=== PATIENT | male | born 1980 | race Two or more races ===

== ENCOUNTER → 2022-11-25 | Outpatient (CLI) | payer OTHER ==
[2022-11-26 04:06] LABS: RUBEOLA (MEASLES) IGG <13.5 AU/mL (Immune >16.4)
[2022-11-27 07:07] LABS: QUANTIFERON, TB GOLD PLUS Negative (Negative)
== END | disposition home or self-care (01) ==
LOC: LABMN 16:10
PROVIDERS: ATTEND Family Medicine
DX: R33.9 Retention of urine, unspecified (principal); R76.9 Abnormal immunological finding in serum, unspecified; R76.11 Nonspecific reaction to tuberculin skin test without active tuberculosis; B19.10 Unspecified viral hepatitis B without hepatic coma; Z20.820 Contact with and (suspected) exposure to varicella
CPT/HCPCS: 86480; 86592; 86706; 86735; 86762; 86765; 86787; 87340; 87491; 87591